=== PATIENT | female | born 1965 | race Caucasian/White ===

== ENCOUNTER 2017-06-04 17:37 | Emergency (ER) | payer MEDICARE, MEDICAID ==
[~2017-06-04] VITALS: Ht 149.9 cm; Wt 49.1 kg
[2017-06-04 17:47] VITALS: BP 135/79
== END 2017-06-04 19:01 | disposition home or self-care (01) ==
LOC: ED 18:05
DX: B30.9 Viral conjunctivitis, unspecified (principal); J01.10 Acute frontal sinusitis, unspecified; J01.00 Acute maxillary sinusitis, unspecified
CPT/HCPCS: 99283